=== PATIENT | female | born 1955 | race African-American/Black ===

== ENCOUNTER → 2018-12-22 | Outpatient (CLI) | payer OTHER, SELFPAY ==
--- NOTE | 2018-12-22 12:59 | CT_ITS ---
STUDY: CT BRAIN AND SINUSES WITHOUT CONTRAST REASON FOR EXAM: Female, 63 years old. Sinusitis RADIATION DOSAGE (If Supplied By Facility): CTDIvol = ( 33.06 ) mGy, DLP = ( 933.02 ) mGycm TECHNIQUE: Transaxial CT imaging of the brain was performed without administration of contrast. Individualized dose optimization techniques were used for this CT. COMPARISON: No relevant priors. FINDINGS: CT BRAIN Normal soft tissue structures. Normal calvarium. Normal size ventricles and extra-axial spaces for the patient's age. Normal white matter tracts of the cerebral hemispheres. Normal basal ganglia and thalami. Normal brainstem. The posterior fossa was incompletely imaged. Empty sella. There is no intracranial hemorrhage. There are no findings of an acute ischemic infarction. CT SINUSES Post Surgical Changes: None. Frontal Sinus and Recess: Normal aeration without mucosal inflammatory disease. Ethmoidal Sinuses: Normal aeration without mucosal inflammatory disease. Maxillary Sinuses: 12 mm cyst in the posterior right maxillary sinus. Ostiomeatal Complex: Clear. Sphenoid Sinus: Normal aeration without mucosal inflammatory disease. Sphenoethmoidal Recess: Clear. Nasal Turbinate (Right): Middle Turbinate (Right): Normal. Middle Turbinate (Left): Normal. Inferior Turbinate (Right): Normal. Inferior Turbinate (Left): Normal. Nasal Septum: Midline. Nasal Airway: Clear. Cribiform Plate / Anterior Cranial Fossa: Normal. Orbits: Normal. CT/Sinus/Facial Bone IMPRESSION: Limited study of the brain. No CT evidence of acute infarct or hemorrhage. No evidence of acute or chronic paranasal sinusitis. Electronically Signed: Qasim Hernandez MD at 15:40 EDT Tel , Service support ,
== END | disposition home or self-care (01) ==
PROVIDERS: Family Provider Nurse Practitioner Primary Care; PCP Nurse Practitioner Primary Care; Referring Provider Otolaryngology; Visit Provider Otolaryngology
DX: J32.9 Chronic sinusitis, unspecified (principal)
CPT/HCPCS: 70486

== ENCOUNTER → 2019-11-04 08:50 | Outpatient (CLI) | payer OTHER, SELFPAY ==
[2019-11-04 09:08] LABS: Hematocrit 40.5 % (37-47); Hemoglobin 13.4 g/dL (12.0-15.0); Mean Corp Hgb Conc 33.1 g/dL (32-36); Mean Corpuscular Hgb 31.2 pg (27.0-32.0); Mean Corpuscular Volume 94.2 fL (81-99); Mean Platelet Vol. 9.5 fl (6.2-12.0); Platelet Count 310 K/mm3 (150-450); RBC Distribution Width CV 12.9 % (11.6-14.6); RBC Distribution Width SD 43.8 fl (35.1-43.9); White Blood Count 7.3 K/mm3 (4.4-11.0)
[2019-11-04 09:30] LABS: ALB/GLOB Ratio 1.1 RATIO (0.9-2.4); AST(SGOT) 9 U/L (15-37); Alanine Aminotransfer ALT/SGPT 14 U/L (13-56); Albumin, Serum 3.7 g/dL (3.2-5.0); Alkaline Phosphatase 80 U/L (45-117); Anion Gap 6 (5-15); BUN 10 mg/dL (7-18); BUN/Creat Ratio 13.9 RATIO (10-20); Chloride 106 mmol/L (98-107); Cholesterol 172 mg/dL (200); Creatinine, Serum 0.72 mg/dL (0.55-1.02); EST Glomerular Filtration Rate 87 mL/min (>60); Est Glom Filt Rate - Afr Amer 106 mL/min (>60); Globulin 3.3 g/dL (2.2-4.2); Glucose 266 mg/dL (74-106); High Density Lipoprotein 75 mg/dL; Potassium 4.3 mmol/L (3.5-5.1); Sodium Level 142 mmol/L (136-145); Triglycerides 116 mg/dL; Very Low Density Lipoprotein 23 mg/dL (5-40)
[2019-11-04 09:41] LABS: Hemoglobin A1c 10.8 % (3.8-5.6)
[2019-11-04 10:34] LABS: Vitamin D,25 Hydroxy 15.1 ng/mL
== END ==
PROVIDERS: PCP Nurse Practitioner Primary Care; Visit Provider Nurse Practitioner Primary Care
DX: E11.9 Type 2 diabetes mellitus without complications (principal)
CPT/HCPCS: 80053; 80061; 82306; 83036; 85027

== ENCOUNTER → 2020-02-23 09:32 | Outpatient (CLI) | payer OTHER, SELFPAY ==
[2020-02-23 10:49] LABS: AST(SGOT) 12 U/L (15-37); Alanine Aminotransfer ALT/SGPT 17 U/L (13-56); Albumin, Serum 3.8 g/dL (3.2-5.0); Alkaline Phosphatase 72 U/L (45-117); Anion Gap 5 (5-15); BUN 8 mg/dL (7-18); BUN/Creat Ratio 9.4 RATIO (10-20); Calcium,Total 9.3 mg/dL (8.5-10.1); Chloride 106 mmol/L (98-107); Creatinine, Serum 0.85 mg/dL (0.55-1.02); EST Glomerular Filtration Rate 72 mL/min (>60); Est Glom Filt Rate - Afr Amer 87 mL/min (>60); Globulin 3.9 g/dL (2.2-4.2); Glucose 120 mg/dL (74-106); Protein, Total 7.7 g/dL (6.4-8.2); Sodium Level 142 mmol/L (136-145)
[2020-02-23 10:54] LABS: Hemoglobin A1c 10.6 % (3.8-5.6)
[2020-02-23 11:03] LABS: Vitamin D,25 Hydroxy 22.9 ng/mL
== END ==
PROVIDERS: PCP Nurse Practitioner Primary Care; Referring Provider Nurse Practitioner Primary Care; Visit Provider Nurse Practitioner Primary Care
DX: E11.9 Type 2 diabetes mellitus without complications (principal); E55.9 Vitamin D deficiency, unspecified
CPT/HCPCS: 80053; 82306; 83036

== ENCOUNTER 2020-08-11 11:13 | Outpatient (RCR) | payer OTHER, SELFPAY ==
[2020-08-11] MEDS: COVID-19 VACC, MRNA(PFIZER)/PF 30 MCG/0.3 ML SYRINGE IM (16:59)
[2020-09-01] MEDS: COVID-19 VACC, MRNA(PFIZER)/PF 30 MCG/0.3 ML SYRINGE IM (16:40)
== END 2020-11-08 23:59 ==
LOC: IMMUN 11:13
PROVIDERS: PCP Nurse Practitioner Primary Care; Visit Provider Family Medicine
DX: Z23 Encounter for immunization (principal)
CPT/HCPCS: 0001A; 0002A; 91300

== ENCOUNTER → 2022-01-20 | Outpatient (CLI) | payer OTHER, SELFPAY ==
--- NOTE | 2022-01-20 08:15 | CT_ITS ---
INDICATION: LUNG NODULE EXAMINATION: CT CHEST WITHOUT CONTRAST - CT Chest W/O Contrast Injection TECHNIQUE: Helically acquired images were obtained of the chest. A radiation dose optimization technique was used for this scan. IV Contrast dosage and agent: None. COMPARISON: None. FINDINGS: LUNGS, PLEURA AND LARGE AIRWAYS: Mild emphysema. Mild bilateral apical scarring. No noncalcified nodule or mass. No pleural effusion or thickening. No pneumothorax. THYROID: 2 cm nodule the posterior aspect left lobe of the thyroid gland and correlation with thyroid ultrasound is recommended. HEART AND PERICARDIUM: Heart size is normal. No pericardial effusion. CORONARY ARTERIES: Coronary artery calcification is seen. VESSELS: Thoracic aorta is not dilated. MEDIASTINUM AND GAURANG: No mediastinal or hilar adenopathy. Esophagus is unremarkable. No hiatal hernia. UPPER ABDOMEN: No acute pathology. BONES: No suspicious lytic or blastic abnormality. CT/Chest without Contrast IMPRESSION: 1. Mild emphysema without pneumonia, atelectasis, nodule, or mass. 2. 2 cm nodule the posterior aspect left lobe of thyroid gland and correlation with thyroid ultrasound is recommended. Electronically Signed: Kvng Matute MD at 10:30 EDT ,
== END | disposition home or self-care (01) ==
PROVIDERS: PCP Nurse Practitioner Primary Care; Referring Provider Internal Medicine Pulmonary Disease; Visit Provider Internal Medicine Pulmonary Disease
DX: R91.1 Solitary pulmonary nodule (principal)
CPT/HCPCS: 71250

== ENCOUNTER → 2022-11-29 | Outpatient (CLI) | payer OTHER, SELFPAY ==
[2022-11-29 13:08] VITALS: BP 104/71; PULSE 81
[2022-11-29] MEDS: Metoprolol Tartrate 5 MG/5 ML Vial IV ×3 (13:08→13:23)
[2022-11-29 13:16] VITALS: BP 107/69; PULSE 77
[2022-11-29 13:23] VITALS: BP 112/62; PULSE 79
[2022-11-29 13:37] LABS: CREATININE FINGERSTICK < 0.9 mg/dL (0.55-1.02); EGFR FINGERSTICK > 60.0000 mL/min (>60)
[2022-11-29 13:49] VITALS: BP 112/67; PULSE 72
[2022-11-29] MEDS: Nitroglycerin SL (ED/IMG/CATH) 0.4 MG TABLET SL (13:49)
[2022-11-29 13:57] VITALS: BP 116/68; PULSE 72; RESP 16; O2SAT 97
--- NOTE | 2022-12-01 10:40 | CCTA_ITS ---
CCTA w/Cont Coronary Arteries Date of Study:: 11/29/22 Chest pain High-resolution Computed Tomographic imaging of the chest was performed on [11/29/2022], with particular attention paid to the coronary arteries. Images from the examination were analyzed for the presence and extent of coronary artery stenosis. The patient was injected with intravenous contrast agent and the images were reconstructed and displayed. There was some motion artifact noted compromising the image quality. Patient tolerated the procedure well and there were no complications. LEFT MAIN CORONARY ARTERY: This arose from the left coronary cusp and did not appear to have any significant stenosis. Bifurcating to left anterior descen ding artery and left circumflex artery [] LEFT ANTERIOR DESCENDING CORONARY ARTERY: Left anterior descending artery was a medium size vessel. There was proximal area of soft plaquing noted moderate in severity and a mid area of focal calcification noted. There was at least mild to moderate stenosis noted. The distal vessel had mild atherosclerotic plaquing. [] LEFT CIRCUMFLEX CORONARY ARTERY: Mid segment of the circumflex artery had a moderate amount of mixed soft and heart plaque present. No obvious high-grade stenosis was present. [] RIGHT CORONARY ARTERY: Misregistration artifact was noted in this vessel and the degree of stenosis could not be well estimated. However mild diffuse soft plaquing was noted. [] CORONARY CALCIUM SCORE: Not performed Conclusion: At least moderate coronary artery disease noted with evidence of soft and hard plaquing noted in the left anterior descending artery and circumflex artery present.
== END | disposition home or self-care (01) ==
PROVIDERS: PCP Nurse Practitioner Primary Care; Referring Provider Nurse Practitioner Family; Visit Provider Nurse Practitioner Family
DX: R07.9 Chest pain, unspecified (principal); I10 Essential (primary) hypertension; E78.5 Hyperlipidemia, unspecified; I49.3 Ventricular premature depolarization
CPT/HCPCS: 75574; 96374; Q9967

== ENCOUNTER → 2023-03-14 | Outpatient (CLI) | payer OTHER, SELFPAY ==
--- NOTE | 2023-03-14 15:32 | CT_ITS ---
INDICATION: LUNG NODULE FOLLOW UP EXAMINATION: CT CHEST WITHOUT CONTRAST - CT Chest W/O Contrast Injection TECHNIQUE: Helically acquired images were obtained of the chest. A radiation dose optimization technique was used for this scan. IV Contrast dosage and agent: None. COMPARISON: 01/20/2022. FINDINGS: LUNGS, PLEURA AND LARGE AIRWAYS: Scheduled mild mid upper lung emphysematous changes, right more than left. Trace posterior dependent atelectasis along the bilateral lower lobes. Otherwise normal lung parenchyma. No pleural effusion or thickening. No pneumothorax. THYROID: Mild thyroid enlargement with nonspecific heterogeneity versus ill-defined nodule posteriorly. HEART AND PERICARDIUM: Heart size is normal. No pericardial effusion. CORONARY ARTERIES: Coronary artery calcification is seen. VESSELS: Atherosclerosis throughout the aorta with no aneurysmal dilatation. MEDIASTINUM AND GAURANG: No mediastinal or hilar adenopathy. Esophagus is unremarkable. No hiatal hernia. UPPER ABDOMEN: Nonspecific hypertrophy/enlargement of the bilateral adrenal glands. BONES: Possible mild osteopenia. Multilevel degenerative disease of the spine. CT/Chest without Contrast IMPRESSION: Mild emphysematous changes with trace posterior dependent atelectasis. Otherwise no acute cardiopulmonary disease. Specifically, no intraparenchymal lung nodule or mass seen. No further follow-up recommended. Heterogeneity through the thyroid gland with mild enlargement otherwise difficult to characterize. If indicated, this can be further assessed with ultrasound in nonacute setting if clinically indicated. Electronically Signed: Mehnaz Wright MD at 22:44 EDT ,
== END | disposition home or self-care (01) ==
LOC: CT 15:30
PROVIDERS: PCP Nurse Practitioner Primary Care; Referring Provider Internal Medicine Pulmonary Disease; Visit Provider Internal Medicine Pulmonary Disease
DX: R91.1 Solitary pulmonary nodule (principal)
CPT/HCPCS: 71250

== ENCOUNTER → 2024-03-11 | Outpatient (CLI) | payer MEDICARE, SELFPAY ==
--- NOTE | 2024-03-11 07:55 | CT_ITS ---
STUDY: CT CHEST WITHOUT CONTRAST REASON FOR EXAM: Female, 68 years old. Follow-up lung nodule. RADIATION DOSAGE (If Supplied By Facility): CTDIvol = ( 11.18 ) mGy, DLP = ( 382.67 ) mGycm TECHNIQUE: Transaxial imaging was performed without the administration of intravenous contrast material. Multiplanar coronal and sagittal images were reformatted. Individualized dose optimization techniques were used for this CT. COMPARISON: Comparison is made with prior study dated March 14, 2023. FINDINGS: CHEST Enlargement of the left lobe of the thyroid gland with minimal retrosternal extension. This is unchanged. Linear scarring at the left lung apex. Mild degree of emphysematous changes. There is no demonstrated pleural abnormality. There are calcifications of the coronary arteries. Normal mediastinum. Normal hilar regions. Normal unenhanced pulmonary arteries. There is atherosclerotic calcification of the aortic arch. There are degenerative changes of the thoracic spine. Stable bilateral adrenal hyperplasia. CT/Chest without Contrast IMPRESSION: Mild degree of emphysematous changes and scarring in the left lung apex. Stable enlargement of the thyroid. Adrenal hyperplasia. Electronically Signed: Aristides Goodrich MD at 15:13 EDT ,
== END | disposition home or self-care (01) ==
PROVIDERS: PCP Nurse Practitioner Primary Care; Referring Provider Internal Medicine Pulmonary Disease; Visit Provider Internal Medicine Pulmonary Disease
DX: R91.1 Solitary pulmonary nodule (principal)
CPT/HCPCS: 71250